=== PATIENT | male | born 1960 | race African-American/Black ===

== ENCOUNTER 2018-05-12 09:54 | Inpatient (IN) | payer SELFPAY ==
[~2018-05-12] VITALS: Ht 182.9 cm; Wt 88.7 kg
[2018-05-12] MEDS ORDERED: NITROGLYCERIN OINT 1GM/INCH UDPKT TD ONE (11:45)
[2018-05-12] MEDS ORDERED: CLONIDINE 0.2MG TABLET PO ONE (11:45)
[2018-05-12] MEDS ORDERED: FUROSEMIDE 40MG/4ML VIAL IVP ONE (11:45)
[2018-05-12 11:50] LABS: BASOPHILS % 0.6 % (0.0-2.0); EOSINOPHILS % 0.4 % (0.0-5.0); HEMATOCRIT. 40.6 % (42.0-52.0); HEMOGLOBIN. 13.3 g/dL (14.0-18.0); LYMPHOCYTES % 10.8 % (20.0-50.0); MEAN CORPUSCULAR HEMOGLOBIN 27.9 pg (28.0-32.0); MEAN CORPUSCULAR VOLUME 85.2 fL (80.0-94.0); MEAN PLATELET VOLUME 10.6 fl (7.4-10.4); MONOCYTES % 7.6 % (2.0-8.0); NEUTROPHILS % 80.6 % (40.0-76.0); PLATELET 166 x1000/uL (130-400); RED BLOOD CELL COUNT 4.77 mill/uL (4.7-6.1); RED CELL DISTRIBUTION WIDTH 14.3 % (11.6-14.6)
[2018-05-12 11:53] LABS: CHLORIDE 107 mEq/L (98-107)
[2018-05-12 11:56] LABS: INR 1.2; PROTHROMBIN TIME 11.9 sec (9.1-11.1)
[2018-05-12] MEDS ORDERED: DILTIAZEM HCL 125 MG in DEXT 5% WATER 100 ML IV ONE ×2 (12:30→13:00)
[2018-05-12] MEDS ORDERED: DILTIAZEM HCL 5MG/ML 5ML VIAL IV ONE (12:30)
[2018-05-12] MEDS ORDERED: DILTIAZEM HCL 5MG/ML 5ML VIAL IV PRN (14:30)
[2018-05-12] MEDS ORDERED: NA PHOS,M-B/NA PHOS,DI-BA ENEMA 118ML PR PRN (14:30)
[2018-05-12] MEDS ORDERED: DOCUSATE SODIUM 100MG CAPSULE PO PRN (14:30)
[2018-05-12] MEDS ORDERED: ACETAMINOPHEN 325MG TABLET PO PRN (14:30)
[2018-05-12] MEDS ORDERED: MAGNESIUM/ALUMINUM HYDROXIDE/SIMETHICONE 30ML UDC PO PRN (14:30)
[2018-05-12] MEDS ORDERED: KETOROLAC 30MG/ML VIAL IV PRN (14:30)
[2018-05-12] MEDS ORDERED: CLONIDINE 0.1MG TABLET PO PRN (14:30)
[2018-05-12] MEDS ORDERED: ZOLPIDEM TARTRATE 5MG TABLET PO PRN (14:30)
[2018-05-12] MEDS ORDERED: LORAZEPAM 0.5MG TABLET PO PRN (14:30)
[2018-05-12] MEDS ORDERED: DILTIAZEM HCL 30MG TABLET PO PRN (14:30)
[2018-05-12] MEDS ORDERED: FUROSEMIDE 100MG/10ML VIAL IVP SCH (14:30)
[2018-05-12] MEDS ORDERED: GUAIFENESIN 200MG/10ML SUGAR FREE UDC PO PRN (14:30)
[2018-05-12] MEDS ORDERED: IPRATROPIUM/ALBUTEROL 0.5-3(2.5)MG/3ML NEB INH PRN (14:30)
[2018-05-12] MEDS ORDERED: DIPHENHYDRAMINE 50MG/ML VIAL IV PRN (14:30)
[2018-05-12 14:37] VITALS: BP 142/90
[2018-05-12 14:43] VITALS: BP 142/90
[2018-05-12 15:22] LABS: ETHANOL BLOOD < 10 mg/dL
[2018-05-12 15:25] LABS: LDL CHOLESTEROL 88 mg/dL (5-100)
[2018-05-12 15:26] LABS: HDL CHOLESTEROL 55 mg/dL (40-59)
[2018-05-12] MEDS ORDERED: ONDANSETRON 4MG ODT PO PRN (15:45)
[2018-05-12] MEDS: LOSARTAN POTASSIUM 50 MG TABLET PO SCH (16:46)
[2018-05-12] MEDS: DILTIAZEM HCL 180MG CAPSULE CD 24HR PO SCH (16:46)
[2018-05-12] MEDS: FUROSEMIDE 40MG/4ML VIAL IVP SCH (16:46)
[2018-05-12] MEDS: ENOXAPARIN 80MG/0.8ML SYR SUBCUT SCH (16:47)
[2018-05-12] MEDS: SPIRONOLACTONE 25MG TABLET PO SCH (17:43)
[2018-05-12 17:58] VITALS: BP 143/92
[2018-05-12 18:32] LABS: T4 FREE 1.31 ng/dL (0.76-1.46)
[2018-05-12 20:00] VITALS: BP 149/95
[2018-05-12 20:02] LABS: CLARITY URINE CLEAR (CLEAR); COLOR URINE YELLOW (YELLOW); KETONES URINE NEGATIVE (NEGATIVE); LEUKOCYTE ESTERASE URINE NEGATIVE (NEGATIVE); NITRITE URINE NEGATIVE (NEGATIVE); OCCULT BLOOD URINE NEGATIVE (NEGATIVE); PROTEIN URINE NEGATIVE (NEGATIVE); SPECIFIC GRAVITY URINE 1.006 (1.005-1.030); UROBILINOGEN URINE 0.2 E.U./dL (0.2-1.0)
[2018-05-12 20:12] LABS: *AMPHETAMINES SCREEN URINE NEGATIVE (NEGATIVE); *BARBITURATES SCREEN URINE NEGATIVE (NEGATIVE); *BENZODIAZEPINES SCREEN URINE NEGATIVE (NEGATIVE)
[2018-05-12 20:13] LABS: *COCAINE SCREEN URINE NEGATIVE (NEGATIVE); CANNABINOID URINE SCREEN NEGATIVE (NEGATIVE); METHADONE URINE SCREEN NEGATIVE (NEGATIVE); OPIATES URINE SCREEN NEGATIVE (NEGATIVE); PHENCYCLIDINE URINE SCREEN NEGATIVE (NEGATIVE)
[2018-05-12] MEDS: FAMOTIDINE 20MG TABLET PO SCH (20:37)
[2018-05-12 22:00] VITALS: BP 130/77
[2018-05-12] MEDS ORDERED: DILTIAZEM HCL 60MG TABLET PO SCH (22:00)
[2018-05-12 23:30] LABS: CREATINE KINASE MB FRACTION 2.7 ng/mL (0.5-3.6)
[2018-05-13] VITALS (7 sets, daily range): BP systolic 135–147; BP diastolic 72–92
[2018-05-13] MEDS: SPIRONOLACTONE 25MG TABLET PO SCH (05:05)
[2018-05-13] MEDS: ENOXAPARIN 80MG/0.8ML SYR SUBCUT SCH (05:06)
[2018-05-13 07:13] LABS: CHLORIDE 104 mEq/L (98-107); HEMATOCRIT. 40.6 % (42.0-52.0); HEMOGLOBIN. 13.5 g/dL (14.0-18.0); MEAN CORPUSCULAR HEMOGLOBIN 28.1 pg (28.0-32.0); MEAN CORPUSCULAR VOLUME 84.6 fL (80.0-94.0); MEAN PLATELET VOLUME 10.4 fl (7.4-10.4); PLATELET 160 x1000/uL (130-400)
[2018-05-13 07:34] LABS: CREATINE KINASE 146 IU/L (39-308)
[2018-05-13 07:37] LABS: CREATINE KINASE MB FRACTION 1.8 ng/mL (0.5-3.6)
[2018-05-13] MEDS: FAMOTIDINE 20MG TABLET PO SCH (08:36)
[2018-05-13] MEDS: FUROSEMIDE 40MG/4ML VIAL IVP SCH (08:37)
[2018-05-13] MEDS: DILTIAZEM HCL 180MG CAPSULE CD 24HR PO SCH (08:37)
[2018-05-13] MEDS: LOSARTAN POTASSIUM 50 MG TABLET PO SCH (08:37)
[2018-05-13] MEDS ORDERED: ASPIRIN 325MG EC TABLET PO SCH (09:00)
[2018-05-13 15:26] LABS: PLATELET ESTIMATE NORMAL
== END 2018-05-13 18:09 | disposition home or self-care (01) | DRG 194 ==
LOC: ER 09:54 → EDBEDREQTM 12:35 → EDBEDREQ 12:35 → 5EST 12:38 → EDBEDREQSVC 12:39 → EDBEDREQ 12:39 → ENRESERV 13:11
PROVIDERS: ADMIT Internal Medicine; ATTEND Internal Medicine
DX: I13.0 Hypertensive heart and chronic kidney disease with heart failure and stage 1 through stage 4 chronic kidney disease, or unspecified chronic kidney disease (principal); N17.0 Acute kidney failure with tubular necrosis; F03.90 Unspecified dementia, unspecified severity, without behavioral disturbance, psychotic disturbance, mood disturbance, and anxiety; E44.1 Mild protein-calorie malnutrition; L97.829 Non-pressure chronic ulcer of other part of left lower leg with unspecified severity; D64.9 Anemia, unspecified; I50.43 Acute on chronic combined systolic (congestive) and diastolic (congestive) heart failure; I47.1 Supraventricular tachycardia; I48.91 Unspecified atrial fibrillation; N18.9 Chronic kidney disease, unspecified; N50.89 Other specified disorders of the male genital organs; Z80.3 Family history of malignant neoplasm of breast; Z82.0 Family history of epilepsy and other diseases of the nervous system; Z68.26 Body mass index [BMI] 26.0-26.9, adult
CPT/HCPCS: 36415; 71045; 80048; 80053; 80061; 80305; 81003; 82550; 82553; 83036; 83735; 83880; 84439; 84443; 84484; 85025; 85610; 93005; 93306; 93970; 96374; 96375; 99285; G0482; J1650; J1940; J3490; J7060

== ENCOUNTER 2020-01-29 09:58 | Inpatient (IN) | payer MEDICAID, OTHER ==
[~2020-01-29] VITALS: Ht 185.4 cm; Wt 66.7 kg
[2020-01-29 11:11] LABS: BASOPHILS % 0.8 % (0.0-2.0); EOSINOPHILS % 0.4 % (0.0-5.0); HEMATOCRIT. 32.2 % (42.0-52.0); HEMOGLOBIN. 10.8 g/dL (14.0-18.0); LYMPHOCYTES % 9.6 % (20.0-50.0); MEAN CORPUSCULAR HEMOGLOBIN 26.6 pg (28.0-32.0); MEAN CORPUSCULAR VOLUME 79.6 fL (80.0-94.0); MEAN PLATELET VOLUME 9.1 fl (7.4-10.4); MONOCYTES % 8.1 % (2.0-8.0); NEUTROPHILS % 81.1 % (40.0-76.0); PLATELET 255 x1000/uL (130-400); RED BLOOD CELL COUNT 4.05 mill/uL (4.7-6.1); RED CELL DISTRIBUTION WIDTH 17.3 % (11.6-14.6)
[2020-01-29 11:18] LABS: CHLORIDE 104 mEq/L (98-107)
[2020-01-29 11:23] LABS: CLARITY URINE CLOUDY (CLEAR); COLOR URINE YELLOW (YELLOW); KETONES URINE NEGATIVE (NEGATIVE); LEUKOCYTE ESTERASE URINE NEGATIVE (NEGATIVE); NITRITE URINE NEGATIVE (NEGATIVE); OCCULT BLOOD URINE 2+ (NEGATIVE); PROTEIN URINE TRACE (NEGATIVE); SPECIFIC GRAVITY URINE 1.022 (1.005-1.030)
[2020-01-29 11:27] LABS: CREATINE KINASE 36 IU/L (39-308)
[2020-01-29 11:29] LABS: D-DIMER 13.24 mg/L FEU (<0.50); INR 1.1; PROTHROMBIN TIME 12.1 sec (9.6-11.0)
[2020-01-29] MEDS ORDERED: LEVOFLOXACIN 500MG PREMIX 100 ML IV ONE (11:30)
[2020-01-29 15:30] VITALS: BP 120/86
[2020-01-29 16:00] VITALS: BP 120/86
[2020-01-29] MEDS ORDERED: RISP0.2514 GT (16:10)
[2020-01-29] MEDS ORDERED: ATOR40TA70 GT (16:10)
[2020-01-29] MEDS ORDERED: HAL1 GT (16:10)
[2020-01-29] MEDS ORDERED: DILT60TA35 GT (16:10)
[2020-01-29] MEDS ORDERED: CLOP75TA33 GT (16:10)
[2020-01-29] MEDS ORDERED: MORPHINE SULFATE 2 MG/ML CPJ (NOT FOR IM USE) IV PRN (17:15)
[2020-01-29] MEDS ORDERED: HYDROCODONE/ACETAMINOPHEN 10/325MG TABLET PO PRN (17:15)
[2020-01-29] MEDS ORDERED: CLONIDINE 0.1MG TABLET PO PRN (17:15)
[2020-01-29] MEDS ORDERED: LORAZEPAM 2MG/ML CPJ IV PRN (17:15)
[2020-01-29] MEDS ORDERED: ONDANSETRON HCL 4MG/2ML INJ IV PRN (17:15)
[2020-01-29] MEDS ORDERED: MAGNESIUM/ALUMINUM HYDROXIDE/SIMETHICONE 30ML UDC PO PRN (17:15)
[2020-01-29] MEDS ORDERED: GUAIFENESIN 200MG/10ML SUGAR FREE UDC PO PRN (17:15)
[2020-01-29] MEDS ORDERED: ACETAMINOPHEN 325MG TABLET PO PRN (17:15)
[2020-01-29] MEDS ORDERED: IPRATROPIUM/ALBUTEROL 0.5-3(2.5)MG/3ML NEB HHN PRN (17:15)
[2020-01-29] MEDS ORDERED: DOCUSATE SODIUM 100MG CAPSULE PO PRN (17:15)
[2020-01-29] MEDS ORDERED: DIPHENHYDRAMINE 50MG/ML VIAL IV PRN (17:15)
[2020-01-29] MEDS ORDERED: HYDRALAZINE 20MG/ML VIAL IV PRN (17:15)
[2020-01-29] MEDS: ENOXAPARIN 80MG/0.8ML SYR SUBCUT SCH (18:28)
[2020-01-29 20:00] VITALS: BP 125/82
[2020-01-29] MEDS: AZITHROMYCIN 500 MG in DEXT 5% WATER 250 ML IV SCH (20:19)
[2020-01-29] MEDS: CEFTRIAXONE 1 G PREMIX 50 ML IV SCH (20:19)
[2020-01-30] VITALS (7 sets, daily range): BP systolic 108–142; BP diastolic 73–90
[2020-01-30] MEDS: ENOXAPARIN 80MG/0.8ML SYR SUBCUT SCH ×2 (05:26→17:06)
[2020-01-30] MEDS: SODIUM CHLORIDE 0.9% INJ 3ML FLUSH IVF SCH ×3 (05:27→22:28)
[2020-01-30 13:24] LABS: BASOPHILS % 0.9 % (0.0-2.0); EOSINOPHILS % 0.5 % (0.0-5.0); HEMATOCRIT. 35.8 % (42.0-52.0); HEMOGLOBIN. 11.8 g/dL (14.0-18.0); LYMPHOCYTES % 13.5 % (20.0-50.0); MEAN CORPUSCULAR HEMOGLOBIN 26.5 pg (28.0-32.0); MEAN CORPUSCULAR VOLUME 80.4 fL (80.0-94.0); MEAN PLATELET VOLUME 9.5 fl (7.4-10.4); MONOCYTES % 9.2 % (2.0-8.0); NEUTROPHILS % 75.9 % (40.0-76.0); PLATELET 264 x1000/uL (130-400); RED BLOOD CELL COUNT 4.45 mill/uL (4.7-6.1); RED CELL DISTRIBUTION WIDTH 18.2 % (11.6-14.6)
[2020-01-30 13:31] LABS: CHLORIDE 102 mEq/L (98-107)
[2020-01-30] MEDS ORDERED: CARVEDILOL 6.25 MG TABLET PO NR (16:00)
[2020-01-30] MEDS ORDERED: FUROSEMIDE 20MG/2ML VIAL IVP NR (16:00)
[2020-01-30] MEDS: CEFTRIAXONE 1 G PREMIX 50 ML IV SCH (19:59)
[2020-01-30] MEDS: AZITHROMYCIN 500 MG in DEXT 5% WATER 250 ML IV SCH (20:23)
[2020-01-30] MEDS: CARVEDILOL 3.125 MG TABLET PO SCH (20:31)
[2020-01-31] VITALS: BP 139/76
[2020-01-31 04:00] VITALS: BP 123/71
[2020-01-31] MEDS: SODIUM CHLORIDE 0.9% INJ 3ML FLUSH IVF SCH ×3 (06:17→21:11)
[2020-01-31] MEDS: ENOXAPARIN 80MG/0.8ML SYR SUBCUT SCH ×2 (06:17→18:29)
[2020-01-31 08:00] VITALS: BP 131/83
[2020-01-31] MEDS: CARVEDILOL 3.125 MG TABLET PO SCH ×2 (09:07→21:00)
[2020-01-31] MEDS: LOSARTAN POTASSIUM 25 MG TABLET PO SCH (09:11)
[2020-01-31 12:00] VITALS: BP 125/70
[2020-01-31] MEDS ORDERED: IOHEXOL-350 100 ML BOTTLE ONE ×2 (14:42→14:43)
[2020-01-31 16:00] VITALS: BP 101/63
[2020-01-31 20:00] VITALS: BP 98/68
[2020-01-31] MEDS: CEFTRIAXONE 1 G PREMIX 50 ML IV SCH (21:07)
[2020-01-31] MEDS: AZITHROMYCIN 500 MG in DEXT 5% WATER 250 ML IV SCH (21:07)
[2020-02-01] VITALS (12 sets, daily range): BP systolic 92–120; BP diastolic 50–88
[2020-02-01] MEDS: ENOXAPARIN 80MG/0.8ML SYR SUBCUT SCH ×2 (03:49→18:34)
[2020-02-01] MEDS: SODIUM CHLORIDE 0.9% INJ 3ML FLUSH IVF SCH ×3 (03:49→21:08)
[2020-02-01] MEDS: LOSARTAN POTASSIUM 25 MG TABLET PO SCH (08:01)
[2020-02-01] MEDS: CARVEDILOL 3.125 MG TABLET PO SCH ×2 (08:01→21:00)
[2020-02-01] MEDS ORDERED: AZITHROMYCIN 500 MG TABLET PO SCH (09:00)
[2020-02-01] MEDS ORDERED: AMIODARONE HCL 900 MG in DEXT 5% WATER 482 ML IV PRN (10:00)
[2020-02-01 15:55] LABS: CHLORIDE 103 mEq/L (98-107)
[2020-02-01] MEDS: CEFTRIAXONE 1 G PREMIX 50 ML IV SCH (19:57)
[2020-02-01] MEDS: AZITHROMYCIN 500 MG in DEXT 5% WATER 250 ML IV SCH (20:12)
[2020-02-01] MEDS: GUAIFENESIN 600MG ER TABLET PO SCH (21:00)
[2020-02-02] VITALS (13 sets, daily range): BP systolic 73–119; BP diastolic 49–78
[2020-02-02] MEDS: SODIUM CHLORIDE 0.9% INJ 3ML FLUSH IVF SCH ×3 (06:26→21:04)
[2020-02-02] MEDS: ENOXAPARIN 80MG/0.8ML SYR SUBCUT SCH ×2 (06:26→17:02)
[2020-02-02 06:45] LABS: BASOPHILS % 0.6 % (0.0-2.0); EOSINOPHILS % 0.6 % (0.0-5.0); HEMATOCRIT. 31.3 % (42.0-52.0); HEMOGLOBIN. 10.4 g/dL (14.0-18.0); LYMPHOCYTES % 12.9 % (20.0-50.0); MEAN CORPUSCULAR HEMOGLOBIN 26.5 pg (28.0-32.0); MEAN CORPUSCULAR VOLUME 79.8 fL (80.0-94.0); MEAN PLATELET VOLUME 9.5 fl (7.4-10.4); MONOCYTES % 9.1 % (2.0-8.0); NEUTROPHILS % 76.8 % (40.0-76.0); PLATELET 242 x1000/uL (130-400); RED BLOOD CELL COUNT 3.92 mill/uL (4.7-6.1); RED CELL DISTRIBUTION WIDTH 18.1 % (11.6-14.6)
[2020-02-02 07:04] LABS: CHLORIDE 103 mEq/L (98-107)
[2020-02-02] MEDS: GUAIFENESIN 600MG ER TABLET PO SCH (09:00)
[2020-02-02] MEDS: LOSARTAN POTASSIUM 25 MG TABLET PO SCH (09:27)
[2020-02-02] MEDS: CARVEDILOL 3.125 MG TABLET PO SCH ×2 (09:27→21:00)
[2020-02-02] MEDS ORDERED: AMIODARONE HCL 200 MG TABLET PO SCH (11:00)
[2020-02-02] MEDS: NYSTATIN POWDER 15GM TOP SCH ×2 (15:39→21:05)
[2020-02-02] MEDS ORDERED: AZITHROMYCIN 500 MG TABLET PO SCH (21:00)
[2020-02-02] MEDS: CEFTRIAXONE 1 G PREMIX 50 ML IV SCH (21:03)
[2020-02-03] VITALS (13 sets, daily range): BP systolic 84–103; BP diastolic 56–70
[2020-02-03] MEDS: SODIUM CHLORIDE 0.9% INJ 3ML FLUSH IVF SCH ×2 (05:00→14:48)
[2020-02-03] MEDS: ENOXAPARIN 80MG/0.8ML SYR SUBCUT SCH ×2 (05:00→18:15)
[2020-02-03] MEDS: NYSTATIN POWDER 15GM TOP SCH ×2 (05:00→14:48)
[2020-02-03 06:49] LABS: EOSINOPHILS % 0.5 % (0.0-5.0); HEMATOCRIT. 24.6 % (42.0-52.0); HEMOGLOBIN. 8.2 g/dL (14.0-18.0); LYMPHOCYTES % 10.2 % (20.0-50.0); MEAN CORPUSCULAR VOLUME 80.8 fL (80.0-94.0); MEAN PLATELET VOLUME 9.7 fl (7.4-10.4); MONOCYTES % 8.2 % (2.0-8.0); NEUTROPHILS % 80.1 % (40.0-76.0); PLATELET 225 x1000/uL (130-400); RED BLOOD CELL COUNT 3.05 mill/uL (4.7-6.1); RED CELL DISTRIBUTION WIDTH 18.7 % (11.6-14.6)
[2020-02-03 07:06] LABS: CHLORIDE 107 mEq/L (98-107)
[2020-02-03] MEDS: LOSARTAN POTASSIUM 25 MG TABLET PO SCH (09:00)
[2020-02-03] MEDS ORDERED: AMIODARONE HCL 200 MG TABLET PO SCH (09:00)
[2020-02-03] MEDS: CARVEDILOL 3.125 MG TABLET PO SCH (09:00)
[2020-02-03] MEDS ORDERED: SODIUM CHLORIDE 0.9% 250 ML IV ONE ×2 (09:45→15:45)
[2020-02-03] MEDS ORDERED: CEFTRIAXONE 1,000 MG in DEXTROSE 5% WATER 50 ML IV SCH ×2 (11:15→21:00)
[2020-02-04] MEDS ORDERED: ASCORBIC ACID 500 MG TABLET PO SCH (09:00)
[2020-02-04] MEDS ORDERED: ZINC SULFATE 220 MG ( 50 ) CAPSULE PO SCH (09:00)
== END 2020-02-03 21:37 | DRG 133 ==
LOC: ER 09:58 → 7EST 11:38 → ENRESERV 12:48 → 6WST 01-30 21:43 → 3WST 02-01 09:00
PROVIDERS: ADMIT Internal Medicine; ATTEND Internal Medicine
DX: J96.01 Acute respiratory failure with hypoxia (principal); I47.2 Ventricular tachycardia; I50.23 Acute on chronic systolic (congestive) heart failure; E46 Unspecified protein-calorie malnutrition; E11.622 Type 2 diabetes mellitus with other skin ulcer; D68.9 Coagulation defect, unspecified; I42.9 Cardiomyopathy, unspecified; I47.1 Supraventricular tachycardia; I48.91 Unspecified atrial fibrillation; I48.92 Unspecified atrial flutter; R13.10 Dysphagia, unspecified; I11.0 Hypertensive heart disease with heart failure; D64.9 Anemia, unspecified; R74.0 Nonspecific elevation of levels of transaminase and lactic acid dehydrogenase [LDH]; Z86.73 Personal history of transient ischemic attack (TIA), and cerebral infarction without residual deficits; I25.2 Old myocardial infarction; Z68.1 Body mass index [BMI] 19.9 or less, adult; Z74.01 Bed confinement status; L57.0 Actinic keratosis; Z20.828 Contact with and (suspected) exposure to other viral communicable diseases
CPT/HCPCS: 36415; 71045; 71275; 80048; 80053; 81003; 82550; 82728; 83605; 83615; 83880; 84145; 84484; 85025; 85379; 85384; 86140; 87635; 87804; 93005; 93306; 93970; 99291; J0282; J0456; J0696; J1650; J1940; J1956; J7060; Q9967